=== PATIENT | male | born 1955 | race Caucasian/White ===

== ENCOUNTER 2024-02-24 14:29 | Emergency (ER) | payer MEDICARE, OTHER ==
[2024-02-24 14:35] VITALS: BP 159/72; PULSE 77; RESP 20; TEMP 97.8
--- NOTE | 2024-02-24 15:10 | ED ---
Back Pain HPI - General Chief Complaint: Back Pain/Injury Stated Complaint: R leg pain Time Seen by Provider: 02/24/24 14:38 Source: patient, RN notes reviewed Limitations: no limitations - History of Present Illness Initial Comments: 68-year-old male presenting with low back pain x 3 weeks. Patient states he has been having low back pain and cramping down his right thigh and lower leg. Denies trauma or injury. Denies tingling, numbness, or weakness in legs. Denies loss of bowel or bladder control. Denies low-grade fevers or history of IV drug use. - Related Data Previous Rx's Medication Instructions Recorded Lidocaine 5% Patch [Lidoderm 5% 1 patch TOPICAL DAILY 7 Days #7 02/24/24 Patch] patch Allergies Allergy/AdvReac Type Severity Reaction Status Date / Time Penicillins Allergy Rash/Hives Verified 02/24/24 14:35 Review of Systems ROS Statement: Those systems with pertinent positive or pertinent negative responses have been documented in the HPI. ROS Other: All systems not noted in ROS Statement are negative. Past Medical History Additional Past Medical History / Comment(s): DVT, History of Any Multi-Drug Resistant Organisms: None Reported Past Surgical History: Cholecystectomy, Orthopedic Surgery Additional Past Surgical History / Comment(s): Eye, Past Psychological History: No Psychological Hx Reported Smoking Status: Current every day smoker Past Alcohol Use History: None Reported Past Drug Use History: None Reported General Exam Limitations: no limitations General appearance: alert, in no apparent distress Head exam: Present: atraumatic, normocephalic, normal inspection Respiratory exam: Present: normal lung sounds bilaterally. Absent: respiratory distress, wheezes, rales, rhonchi, stridor Cardiovascular Exam: Present: regular rate, normal rhythm, normal heart sounds. Absent: systolic murmur, diastolic murmur, rubs, gallop, clicks GI/Abdominal exam: Present: soft, normal bowel sounds. Absent: distended, tenderness, guarding, rebound, rigid Back exam: Present: normal inspection, other (Full strength and range of motion of bilateral hips. No saddle anesthesia. Full sensation, DP pulses in bilateral lower extremities.). Absent: CVA tenderness (R), CVA tenderness (L) Neurological exam: Present: alert, oriented X3 Psychiatric exam: Present: normal affect, normal mood Skin exam: Present: warm, dry, intact, normal color. Absent: rash Course Vital Signs 02/24/24 14:32 Temperature 97.8 F Pulse Rate 77 Respiratory 20 Rate Blood Pressure 159/72 O2 Sat by Pulse 97 Oximetry Medical Decision Making - Medical Decision Making Was pt. sent in by a medical professional or institution (GARRETT Peres, [employer], urgent care, hospital, or residential...) When possible be specific @ -No Did you speak to anyone other than the patient for history (EMS, parent, family, police, friend...)? What history was obtained from this source @ -No Did you review nursing and triage notes (agree or disagree)? Why? @ -I reviewed and agree with nursing and triage notes Were old charts reviewed (outside hosp., previous admission, EMS record, old EKG, old radiological studies, urgent care reports/EKG's, residential records)? Report findings @ -No old charts were reviewed Differential Diagnosis (chest pain, altered mental status, abdominal pain women, abdominal pain men, vaginal bleeding, weakness, fever, dyspnea, syncope, headache, dizziness, GI bleed, back pain, seizure, CVA, palpatations, mental health, musculoskeletal)? @ -Differential Back Pain: Strain, zoster, cauda equina syndrome, epidural abscess, vertebral osteomyelitis, discitis, fracture, subluxation, disc herniation, DJD, spinal stenosis, dissection, AAA, pancreatitis, peptic ulcer disease, pyelonephritis, kidney stone, this is not meant to be an all-inclusive list. EKG interpreted by me (3pts min.). @ -None X-rays interpreted by me (1pt min.). @ -Lumbar spine x-ray revealed no lumbar spine fracture or malalignment, there is multilevel degenerative disc disease severe L3-S1, advanced osteoarthritis changes of facet joints at L4-5 and L5-S1 levels CT interpreted by me (1pt min.). @ -None done U/S interpreted by me (1pt. min.). @ -None done What testing was considered but not performed or refused? (CT, X-rays, U/S, la bs)? Why? @ -Laboratory studies not indicated due to no red flag symptoms What meds were considered but not given or refused? Why? @ -None Did you discuss the management of the patient with other professionals (professionals i.e. GARRETT Peres, [employer]ER, lab, RT, psych nurse, social services coordinator, securities underwriter, teacher, county health officer, family independence case manager)? Give summary @ -No Was smoking cessation discussed for >3mins.? @ -No Was critical care preformed (if so, how long)? @ -No Were there social determinants of health that impacted care today? How? (Homelessness, low income, unemployed, alcoholism, drug addiction, transporta tion, low edu. Level, literacy, decrease access to med. care, nursing home, rehab)? @ -No Was there de-escalation of care discussed even if they declined (Discuss DNR or withdrawal of care, Hospice)? DNR status @ -No What co-morbidities impacted this encounter? (DM, HTN, Smoking, COPD, CAD, Cancer, CVA, ARF, Chemo, Hep., AIDS, mental health diagnosis, sleep apnea, morbid obesity)? @ -None Was patient admitted / discharged? Hospital course, mention meds given and route, prescriptions, significant lab abnormalities, going to OR and other pertinent info. @ -Patient was discharged. This is a 68-year-old male presenting with low back pain x 3 weeks with associated right leg pain. No red flag symptoms such as low-grade fevers or IV drug use. Denies weakness, numbness, or tingling in the lower extremities. Vitals are within normal limits. Patient is neurovascularly intact. No sign of bacterial infection. Lumbar spine x-ray revealed no lumbar spine fracture or malalignment, however there is multilevel degenerative disc disease and advanced osteoarthritis changes of facet joints. Discussed findings with patient. Symptoms are likely due to osteoarthritis of lower back with radiculopathy. Prescribed lidocaine patches. Return precautions discussed and patient is agreeable to plan. Advised close follow-up with PCP. Case was discussed with my ED attending Dr. Adan. Patient discharged stable condition. Undiagnosed new problem with uncertain prognosis? @ -No Drug Therapy requiring intensive monitoring for toxicity (Heparin, Nitro, Insulin, Cardizem)? @ -No Were any procedures done? @ -No Diagnosis/symptom? @ -Low back pain Acute, or Chronic, or Acute on Chronic? @ -Acute Uncomplicated (without systemic symptoms) or Complicated (systemic symptoms)? @ -Uncomplicated Side effects of treatment? @ -No Exacerbation, Progression, or Severe Exacerbation? @ -No Poses a threat to life or bodily function? How? (Chest pain, [place], [place], pneumonia, PE, COPD, DKA, ARF, appy, cholecystitis, CVA, Diverticulitis, Homicidal, Suicidal, threat to staff... and all critical care pts) @ -No Disposition Clinical Impression: Low back pain Disposition: HOME SELF-CARE Condition: Stable Instructions (If sedation given, give patient instructions): Degenerative Disc Disease (ED) Additional Instructions: Use lidocaine patches as needed for pain. Please return to the Emergency Department if symptoms worsen or any other concerns. Prescriptions: Lidocaine 5% Patch [Lidoderm 5% Patch] 1 patch TOPICAL DAILY 7 Days #7 patch Is patient prescribed a controlled substance at d/c from ED?: No Referrals: Nonstaff,Physician [Primary Care Provider] - 1-2 days Time of Disposition: 15:54
--- NOTE | 2024-02-24 15:32 | XR ---
Lumbar spine HISTORY: Back pain COMPARISON: None TECHNIQUE: 3 views lumbar spine were obtained. FINDINGS: The lumbar vertebral segments are normal in height and alignment and there is no fracture or subluxat ion. There is moderate to marked degenerative disc disease at the L3-4, L4-5 and L5-S1 levels where there is moderate to marked disc space narrowing, vacuum phenomena and spondylosis. There is mild to moderate degenerative disc disease throughout the visualized lower thoracic spine an d upper lumbar spine where there is [id number] disc space narrowing and spondylosis. There is marked sclerosis of facet joints at the L4-5 and L5-S1 levels indicating probable severe ost eoarthritis of the facet joints. There is mild sclerosis of the visualized portions of the SI joints. IMPRESSION: 1. No lumbar spine fracture or malalignment. 2. Multilevel degenerative disc disease as described above, severe from L3 through S1. 3. Advanced osteoarthritic changes of facet joints at the L4-5 and L5-S1 levels.
[2024-02-24] MEDS: Acetaminophen-Codeine 300-30mg TAB PO STA (15:33)
== END 2024-02-24 16:12 | disposition home or self-care (01) ==
LOC: EC 14:29
CPT/HCPCS: 72100; 99283